=== PATIENT | female | born 1990 | race Caucasian/White ===

== ENCOUNTER 2024-01-23 11:39 | Emergency (ER) | payer MEDICAID ==
[~2024-01-23] VITALS: Ht 180.3 cm; Wt 69.0 kg
[2024-01-23 11:42] VITALS: O2SAT 99
[2024-01-23] MEDS: HYDROCODONE/ACETAMINOPHEN 5/325MG TABLET PO ONE (13:00)
[2024-01-23 14:13] LABS: HCG SCREEN NEGATIVE
[2024-01-23] MEDS ORDERED: HYDR-4001 MT (15:02)
[2024-01-23] MEDS ORDERED: CLIN-194 MT (15:02)
[2024-01-23] MEDS ORDERED: IBUP-2030 MT (15:02)
[2024-01-23 15:44] VITALS: BP 112/69; PULSE 73; RESP 18; TEMP 98.8
== END 2024-01-23 15:49 | disposition home or self-care (01) ==
LOC: ER 11:39
DX: S02.2XXA Fracture of nasal bones, initial encounter for closed fracture (principal); S02.92XA Unspecified fracture of facial bones, initial encounter for closed fracture; Z88.0 Allergy status to penicillin; Y04.2XXA Assault by strike against or bumped into by another person, initial encounter; Y93.01 Activity, walking, marching and hiking; Y92.410 Unspecified street and highway as the place of occurrence of the external cause; Y99.8 Other external cause status
CPT/HCPCS: 81025; 84703; 70450; 70486; 99284; Z7610